=== PATIENT | female | born 1995 | race Caucasian/White ===

== ENCOUNTER 2023-07-08 10:10 | Outpatient (RCR) | payer OTHER | END 2023-07-27 | disposition home or self-care (01) | LOC: OT | DX: S67.21XD Crushing injury of right hand, subsequent encounter (principal); S60.221D Contusion of right hand, subsequent encounter; M65.4 Radial styloid tenosynovitis [de Quervain]; X58.XXXD Exposure to other specified factors, subsequent encounter ==

== ENCOUNTER 2023-07-28 08:00 | Outpatient (RCR) | payer OTHER | END 2023-08-25 | disposition home or self-care (01) | LOC: OT | DX: S67.21XD Crushing injury of right hand, subsequent encounter (principal); S60.221D Contusion of right hand, subsequent encounter; M65.4 Radial styloid tenosynovitis [de Quervain]; X58.XXXD Exposure to other specified factors, subsequent encounter ==